=== PATIENT | male | born 1970 | race Caucasian/White ===

== ENCOUNTER 2016-12-01 23:23 | Inpatient (IN) | payer BC, OTHER ==
[~2016-12-01] VITALS: Ht 182.9 cm; Wt 82.6 kg
--- NOTE | ~2016-12-01 | D ---
[facility] [place] [address] DISCHARGE SUMMARY Name: CHANEL GAMBOA Room #: 219-P [facility] [place] .R.#: [id number] Admission: 12/02/16 Attend Phys: John Jung MD Discharge: 12/03/16 Date of : 68 Report #: [id number] THIS REPORT FOR: //name// CC: Morris Gagnon MD DATE OF SERVICE: 12/03/2016 PRIMARY DOCTOR: Pankaj Gagnon M.D. DISCHARGE DIAGNOSES: 1. Acute pancreatitis question possible autoimmune versus idiopathic. 2. Gallbladder polyps. 3. 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 CONSULTS: GI. PROCEDURES: None. HOSPITAL COURSE: The patient is a 46-year-old male recently diagnosed with optic neuritis felt to be related to autoimmune disorder, presented to the ER secondary to abdominal pain. Please see details of the admission dictated by Brynn Jasso on December 02. The patient was started on high dose steroids and shortly thereafter developed the abdominal pain. Initially, he felt it was related to the steroids. Workup in the ER included a lipase that was elevated greater than 7000. He had an abdominal ultrasound that showed multiple gallbladder polyps and no pancreatic abnormalities. GI was consulted and did not feel that this was related to steroids and actually cleared him and restarted the steroids. He did feel that his pancreatitis is related to an autoimmune etiology that the steroids would be of benefit. With bowel rest, his symptoms have improved. He has been tolerating clear liquid diet and was not anxious to go home today. His lipase has come down to 3700. I talked to GI who cleared him for discharge and recommended outpatient followup for his gallbladder polyps. I reiterated this with the patient and also put it in my discharge orders as well. He indicates that he wants to take care of his eye issues before he sees a surgeon, which is reasonable. DISCHARGE DISPOSITION: To home. DISCHARGE PHYSICAL EXAMINATION: VITAL SIGNS: Temperature of 36.8, pulse of 54, blood pressure 119/79. GENERAL: He is awake, alert, answering questions appropriately, no acute respiratory distress. HEENT: Normocephalic, atraumatic. Pupils are equal. [facility] [address] [place] [address] DISCHARGE SUMMARY Name: CHANEL GAMBOA Room #: 219-P [facility] [place] [facility].#: [id number] Admission: 12/02/16 Attend Phys: John Jung MD Discharge: 12/03/16 Date of : 68 Report #: [id number] NECK: Supple. CARDIOVASCULAR: Regular rate and rhythm, no murmurs. LUNGS: Clear to auscultation bilaterally. No crackles or wheeze. ABDOMEN: Soft, no distention or tenderness. EXTREMITIES: No edema. NEUROLOGIC: Nonfocal. DISCHARGE MEDICATIONS: Fish oil 1000 mg daily, multivitamin daily, prednisone 60 mg daily, low fat diet, activity as tolerated. Follow up with primary care in 1 week or in 5 days with repeat labs, GI in 1 week, surgery in 2 weeks. 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 Discharge plan took 32 minutes. I explained to him the discharge diagnosis, treatment plan and appropriate followup in detail. He had no further questions. I also spoke with GI, nursing staff, and case management. By: [phone] My Jim Bartlett MD /nt
--- NOTE | ~2016-12-01 | EKG ---
[place] [address] [facility] [place] [address] ELECTROCARDIOGRAM REPORT Name: CHANEL GAMBOA Ald[place] Room #: 219-P [facility] M..#: [id number] Admission: 12/02/16 Attend Phys: John Jung MD Discharge: Date of : 68 Report #: [id number] THIS REPORT FOR: //name// 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 12/02/16 0854 0001 0001 Bj Ramires MD, FACC /EPI
--- NOTE | ~2016-12-01 | H ---
[facility] [place] [address] HISTORY AND PHYSICAL Name: CHANEL GAMBOA [id number] Admission: 12/02/16 Attend Phys: John Jung MD Discharge: Date of : 68 Report #: [id number] THIS REPORT FOR: //name// CC: Morris Jung DATE OF SERVICE: 12/02/2016 ATTENDING PHYSICIAN: Dr. Jung. PRIMARY CARE PHYSICIAN: Dr. Noonan at [facility]. CHIEF COMPLAINT: Abdominal pain. HISTORY OF PRESENT ILLNESS: The patient is a 46-year-old male who has recently been experiencing some vision changes. He has had decreasing vision over the last 3-4 weeks, it has been in both eyes and he says his acuity has been declining, this came on very suddenly and he has been evaluated by multiple physicians. He is currently seeing Neuro-ophthalmology who felt that it could be optic neuritis. Therefore he was just started on high dose IV steroids infusions of Solu Medrol over the last 3 days. He was having this daily at [facility]. He just finished that yesterday morning and then was supposed to be starting prednisone 60 mg daily for 2 weeks. He said yesterday morning he overall is feeling nauseous and did not want to eat much. He does drink coffee throughout the morning and then he had a large dinner with his family with pasta shortly thereafter he started having severe epigastric abdominal pain. The pain seemed to radiate through to his back, it was short been stabbing in nature. He rated his pain 9/10. He came into the ER and was evaluated on lab work and he does have pancreatitis. He denies any history of pancreatitis. He received some pain medication in the ER, which he said did help release some of his pain, but it still has not completely gone away and he has been admitted for further evaluation. He is denying any chest pain. He feels like of vision really has not improved much after the high dose IV steroids. As far as his optic neuritis workup, he also received an MRI, which was unremarkable. He has not yet had a lumbar puncture. PAST MEDICAL HISTORY: None. PAST SURGICAL HISTORY: None. ALLERGIES: None. HOME MEDICATIONS: None. SOCIAL HISTORY: The patient denies any current tobacco or drug use. He drinks [facility] [place] [address] HISTORY AND PHYSICAL Name: CHANEL GAMBOA Room #: 219-P [facility] Adan#: [id number] Admission: 12/02/16 Attend Phys: John Jung MD Discharge: Date of : 68 Report #: [id number] alcohol two to three times per week. He works as a psychologist. He lives at home with his and children. FAMILY HISTORY: Significant for multiple sclerosis. REVIEW OF SYSTEMS: Twelve point review of systems was reviewed with the patient, otherwise negative unless stated in the HPI. PHYSICAL EXAMINATION: GENERAL: The patient is an alert male in no acute distress. VITAL SIGNS: Temperature is 36.7, heart rate 58, respirations 16, blood pressure is 142/89, and oxygen is 97% on room air. HEENT: PERRLA. Sclerae are nonicteric. Oral mucosa is pink and moist. NECK: Supple, no JVD noted. CARDIOVASCULAR: Normal S1, S2. No murmurs, rubs or gallops. RESPIRATORY: Breath sounds are clear bilaterally. No wheezing or rhonchi. Breathing is nonlabored. ABDOMEN: Soft and nondistended. He did have some tenderness in the epigastric area. Bowel sounds are positive. VASCULAR: No edema noted. Pedal pulses are 2+. NEUROLOGIC: The patient is alert and oriented x 3. Speech is clear. He is following all commands, moving all extremities equally. No focal neuro deficits noted. PSYCHIATRIC: The patient is somewhat anxious, but otherwise pleasant and cooperative. LABORATORY DATA AND DIAGNOSTICS: WBC is 12.3, hemoglobin 13.0 and platelets 208. Sodium 142, potassium 3.2, BUN 23, creatinine 1.2, and glucose 108. LFTs are within normal limits. Lipase is 7088. ASSESSMENT AND PLAN: 1. Acute pancreatitis. Etiology for this is not completely clear, but it may be steroid induced as he did receive high dose steroids per IV over the weekend. We will continue with clear liquids and gently hydrate and repeat labs later on this morning. The patient is anxious to know when he will be able to leave. We will need to discuss when it will be appropriate to resume his current prednisone dose, continue with IV fluids and pain control. 2. Hypokalemia. This has been replaced. Repeat labs in the morning. 3. Recently diagnoses of optic neuritis, the patient follows with Dr. Burnham who is an heel brusher. The patient plans to check with him in the morning regarding continuing prednisone at the high doses. 4. Deep venous thrombosis prophylaxis, place sequential compression devices. [facility] [address] [place] [address] HISTORY AND PHYSICAL Name: CHANEL GAMBOA Room #: 219-P [facility] Courtney Arellano#: [id number] Admission: 12/02/16 Attend Phys: John Jung MD Discharge: Date of : 68 Report #: [id number] We will continue to follow the patient closely throughout the hospitalization and make changes based on clinical status. <ELECTRONICALLY SIGNED> By: PARDEEP Henry 12/03/16 0615 [id number] PARDEEP Henry /aleja
[2016-12-01 23:26] VITALS: BP 142/88
[2016-12-01] MEDS ORDERED: CENTRUM SILVER1 EAC2 PO (23:30)
[2016-12-01] MEDS ORDERED: FISH OIL 1,001000 M2 PO (23:30)
[2016-12-01] MEDS ORDERED: PREDNISONE 20 M20 MG PO (23:31)
[2016-12-02 00:09] LABS: ABSOLUTE NEUTROPHILS 7.9 thou/uL (1.4-8.2); BASOPHILS 0.6 % (0.0-2.0); EOSINOPHILS 0.1 % (0.0-3.0); HEMATOCRIT 38.2 % (42.0-52.0); LYMPHOCYTES 23.6 % (24.0-44.0); MCH 30.9 pg (26.0-34.0); MCHC 34.2 g/dL (28.0-37.0); MCV 90.5 fL (80.0-100.0); MONOCYTES 11.2 % (1.0-8.0); PLATELET COUNT 208 thou/uL (150-400); POLYS 64.5 % (36.0-66.0); RBC 4.22 mil/uL (4.50-6.00); RDW 13.2 % (10.5-14.5); WBC 12.3 thou/uL (4.0-11.0)
[2016-12-02 00:11] LABS: MANUAL DIFF NO
[2016-12-02 00:23] LABS: ALBUMIN 3.2 g/dL (3.4-5.0); ALKALINE PHOSPHATASE 55 U/L (46-116); ANION GAP 7 mmol/L (7-16); BUN 23 mg/dL (7-18); CALCIUM 8.8 mg/dL (8.5-10.1); CHLORIDE 106 mmol/L (98-107); CO2 29 mmol/L (21-32); CREATININE 1.2 mg/dL (0.7-1.3); GLUCOSE 108 mg/dL (74-106); POTASSIUM 3.2 mmol/L (3.5-5.1); SGOT 13 U/L (15-37); SGPT 17 U/L (30-65); SODIUM 142 mmol/L (136-145); TOTAL BILIRUBIN 0.3 mg/dL (<0.1-1.0); TOTAL PROTEIN 6.3 g/dL (6.4-8.2); TROPONIN-I < 0.04 ng/mL (<0.04-0.07)
[2016-12-02 01:19] VITALS: BP 138/84
[2016-12-02 04:16] VITALS: BP 137/87
[2016-12-02 05:47] LABS: URINE BILIRUBIN NEGATIVE (Negative); URINE BLOOD NEGATIVE (Negative); URINE COLOR YELLOW; URINE GLUCOSE-RANDOM* NEGATIVE (Negative); URINE KETONES NEGATIVE (Negative); URINE LEUKOCYTES-REFLEX NEGATIVE (Negative); URINE PROTEIN (DIPSTICK) NEGATIVE (Negative); URINE SPECIFIC GRAVITY >= 1.030 (1.003-1.035); URINE UROBILINOGEN 0.2 E.U./dl (0.2-1.0)
[2016-12-02 07:51] VITALS: BP 124/75
[2016-12-02 15:53] VITALS: BP 126/70
[2016-12-02 19:44] VITALS: BP 118/78
[2016-12-03 03:10] LABS: GLYCOHEMOGLOBIN (HGB A1C) 5.6 % (4.8-5.6)
[2016-12-03 04:38] VITALS: BP 122/72
[2016-12-03 04:49] LABS: CALCIUM 8.3 mg/dL (8.5-10.1); POTASSIUM 3.6 mmol/L (3.5-5.1)
[2016-12-03 07:30] VITALS: BP 119/79
[2016-12-03 11:30] VITALS: BP 130/77
[2016-12-03 12:39] VITALS: BP 119/79
== END 2016-12-03 15:10 | disposition home or self-care (01) | DRG 439 ==
LOC: ER 23:23 → EROBS 12-02 01:08 → 2N 12-02 01:23
PROVIDERS: Emergency Medicine; Nurse Practitioner Acute Care
DX: K85.30 Drug induced acute pancreatitis without necrosis or infection (principal); H46.9 Unspecified optic neuritis; K82.4 Cholesterolosis of gallbladder; E87.6 Hypokalemia; Z79.899 Other long term (current) drug therapy; Z90.49 Acquired absence of other specified parts of digestive tract
CPT/HCPCS: 10797